=== PATIENT | male | born 1990 | race African-American/Black ===

== ENCOUNTER 2022-08-18 16:00 | Emergency (ER) | payer OTHER ==
[~2022-08-18] VITALS: Ht 175.3 cm; Wt 100.0 kg
[2022-08-18 16:02] VITALS: BP 151/94
[2022-08-18] MEDS ORDERED: DEXAMETHASONE 10 MG/ML VIAL PO ONE (17:00)
[2022-08-18] MEDS ORDERED: ACETAMINOPHEN 325MG TABLET PO ONE (17:00)
[2022-08-18] MEDS ORDERED: DEXAMETHASONE 4MG TABLET PO ONE (17:15)
[2022-08-18] MEDS ORDERED: BENZ1LOZ73 MT (18:08)
[2022-08-18] MEDS ORDERED: ACET-2708 MT (18:08)
== END 2022-08-18 18:17 | disposition home or self-care (01) ==
LOC: ER 16:00
DX: J02.9 Acute pharyngitis, unspecified (principal); J45.909 Unspecified asthma, uncomplicated; Z79.82 Long term (current) use of aspirin
CPT/HCPCS: 87070; 87430; 87804; 99283; J8540; J1100